=== PATIENT | male | born 1930 | race Caucasian/White ===

== ENCOUNTER 2016-11-23 09:15 | Emergency (ER) | payer OTHER ==
--- NOTE | 2016-11-23 09:57 | ED CLINICAL REPORT ---
Clinical Report - Physicians/Mid Levels [facility] [address] [place] [place] [address] 11/23/2016 9:17 Patient: DAISY WINKLER Time Seen: 09:48; initial patient contact. Arrived- By private vehicle. Historian- patient. HISTORY OF PRESENT ILLNESS Chief Complaint: Injury to the left foot. The injury happened yesterday. Occurred at home. (Gout). Patient is experiencing moderate pain. Patient denies injury to the head or neck. REVIEW OF SYSTEMS The patient has had swelling. No tingling or skin laceration. He has no pain on weight bearing. All systems otherwise negative, except as recorded above. PAST HISTORY Gout. Gastroesophageal Reflux Disease. Hypertension. SURGERIES: Dental Surgery. R Hand Tendon Repair. Medications: Lisinopril Oral. Multivitamins Oral. Omeprazole Oral. Allergies: Aspirin. SOCIAL HISTORY Former smoker. Alcohol use. Patient is a recovering alcoholic. ADDITIONAL NOTES The nursing notes have been reviewed with agreement regarding the chief complaint, PMH and patient medications and allergies. PHYSICAL EXAM Vital Signs: 11/23/2016 09:35 BP: 147/86. HR: 90. RR: 18. O2 saturation: 97%. Temp: 98.2 F. Pain level now: 1010. Have been reviewed. Hypertensive. Heart rate normal. Respiratory rate normal. Temperature normal. Oxygen saturation normal. Appearance: Alert. Oriented X3. No acute distress. Eyes: Eyes normal inspection. CVS: Normal heart rate and rhythm. Heart sounds normal. Respiratory: No respiratory distress. Breath sounds normal. Skin: Skin intact. Skin warm and dry. Extremities: Left great toe: mild erythema and swelling and moderate tenderness of the MTP joint; limited movement secondary to pain (diminished flexion and extension). Neurovascular intact distally. No deformity. No ankle injury. Foot and ankle exam otherwise negative. Extremities otherwise negative. Neuro, Vascular and Tendons: Vascular status intact. Sensation intact. Motor intact. Gait: Limping gait. Neuro: Oriented X 3. PROGRESS AND PROCEDURES Disposition: Discharged home in good condition. Condition: good. 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 No tophus. INSTRUCTIONS Apply ice for 20 minutes four times a day. Don't apply ice directly to skin. Your Current Medications: CONTINUE TAKING THE FOLLOWING MEDICATIONS: Lisinopril Oral. Multivitamins Oral. Omeprazole Oral. Prescription Medications: Ibuprofen 600 mg tablets: take 1 tablet orally every 6 hours as needed for pain, stiffness or swelling. Dispense thirty (30). No refill. Colchicine 0.6 mg tablets: take 1 tablet orally every 1-2 hours as needed for pain. Do not take more than 4 mg in one day. Dispense twenty (20). No refills. Follow-up: Blood pressure screening was not performed during this visit because the patient has an active diagnosis of hypertension. The patient should follow up with a primary care provider for blood pressure management. Follow-up with: Romie Acevedo MD, [facility], , [facility], [address] [place] [address] Follow up in about two days if not better. Call for an appointment. (Electronically signed by Rafat Concepcion Dr. 11/23/2016 10:00)
--- NOTE | 2016-11-23 09:57 | ED CLINICAL REPORT ---
Clinical Report - Physicians/Mid Levels [facility] [address] [place] [place] [address] 11/23/2016 9:17 Patient: DAISY WINKLER Time Seen: 09:48; initial patient contact. Arrived- By private vehicle. Historian- patient. HISTORY OF PRESENT ILLNESS Chief Complaint: Injury to the left foot. The injury happened yesterday. Occurred at home. (Gout). Patient is experiencing moderate pain. Patient denies injury to the head or neck. REVIEW OF SYSTEMS The patient has had swelling. No tingling or skin laceration. He has no pain on weight bearing. All systems otherwise negative, except as recorded above. PAST HISTORY Gout. Gastroesophageal Reflux Disease. Hypertension. SURGERIES: Dental Surgery. R Hand Tendon Repair. Medications: Lisinopril Oral. Multivitamins Oral. Omeprazole Oral. Allergies: Aspirin. SOCIAL HISTORY Former smoker. Alcohol use. Patient is a recovering alcoholic. ADDITIONAL NOTES The nursing notes have been reviewed with agreement regarding the chief complaint, PMH and patient medications and allergies. PHYSICAL EXAM Vital Signs: 11/23/2016 09:35 BP: 147/86. HR: 90. RR: 18. O2 saturation: 97%. Temp: 98.2 F. Pain level now: 1010. Have been reviewed. Hypertensive. Heart rate normal. Respiratory rate normal. Temperature normal. Oxygen saturation normal. Appearance: Alert. Oriented X3. No acute distress. Eyes: Eyes normal inspection. CVS: Normal heart rate and rhythm. Heart sounds normal. Respiratory: No respiratory distress. Breath sounds normal. Skin: Skin intact. Skin warm and dry. Extremities: Left great toe: mild erythema and swelling and moderate tenderness of the MTP joint; limited movement secondary to pain (diminished flexion and extension). Neurovascular intact distally. No deformity. No ankle injury. Foot and ankle exam otherwise negative. Extremities otherwise negative. Neuro, Vascular and Tendons: Vascular status intact. Sensation intact. Motor intact. Gait: Limping gait. Neuro: Oriented X 3. PROGRESS AND PROCEDURES Disposition: Discharged home in good condition. Condition: good. 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 No tophus. INSTRUCTIONS Apply ice for 20 minutes four times a day. Don't apply ice directly to skin. Your Current Medications: CONTINUE TAKING THE FOLLOWING MEDICATIONS: Lisinopril Oral. Multivitamins Oral. Omeprazole Oral. Prescription Medications: Ibuprofen 600 mg tablets: take 1 tablet orally every 6 hours as needed for pain, stiffness or swelling. Dispense thirty (30). No refill. Colchicine 0.6 mg tablets: take 1 tablet orally every 1-2 hours as needed for pain. Do not take more than 4 mg in one day. Dispense twenty (20). No refills. Follow-up: Blood pressure screening was not performed during this visit because the patient has an active diagnosis of hypertension. The patient should follow up with a primary care provider for blood pressure management. Follow-up with: Romie Acevedo MD, [facility], , [facility], [address] [place] [address] Follow up in about two days if not better. Call for an appointment. (Electronically signed by Rafat Concepcion Dr. 11/23/2016 10:00)
--- NOTE | 2016-11-23 09:57 | ED NURSING NOTES ---
Clinical Report - Nurses [facility] [address] [place] [address] 11/23/2016 9:17 Patient: DAISY WINKLER TRIAGE Triage time 09:36. Acuity: LEVEL 5. Chief Complaint: LEFT LOWER EXTREMITY PAIN and SWELLING. Location of symptoms- left foot and left great toe. --09:41 Venessa Miner R.N. 09:35 11/23/16. BP: 147/86. HR: 90. RR: 18. O2 saturation: 97%. Temp: 98.2 F. Pain level now: 07/24. --09:41 Venessa Miner R.N. Weight: 63.9 kg stated. Height/Length: 66 inches Per Patient. BMI: 22.7. --09:36 Venessa Miner R.N. Medications Lisinopril Oral. Multivitamins Oral. Omeprazole Oral. --09:38 Venessa Miner R.N. Allergies Aspirin. --09:38 Venessa Miner R.N. History Arrived by private vehicle. Historian: patient. Accompanied by friend. Primary physician ([place], at [facility]). No injury occurred. This occurred yesterday. SOCIAL HX: Former smoker, end date 1985. Alcohol use. Patient is a recovering alcoholic. No drug use. FALL RISK ASSESSMENT: Fall risk assessment completed. No fall risk identified. NUTRITIONAL RISK ASSESSMENT: The nutritional risk assessment revealed no deficiencies. FUNCTIONAL ASSESSMENT: Functional assessment performed: mobility impairment present- this mobility impairment is an ongoing problem. --09:41 Venessa Miner R.N. PROBLEMS: Gout. Gastroesophageal Reflux Disease. Hypertension. --09:39 Venessa Miner R.N. ADDITIONAL SURGERIES: Dental Surgery. R Hand Tendon Repair. --09:39 Venessa Miner R.N. Interventions ID band on patient. To room. --09:41 Venessa Miner R.N. PHYSICAL ASSESSMENT 09:41 11/23/16. GENERAL / NEURO / PSYCH: Appears in pain and anxious. --09:41 Venessa Miner R.N. NURSING PROGRESS NOTES 09:42 11/23/16. Patient identifiers checked. Call light placed in reach. Bed placed in lowest position. Patient ready for evaluation- chart flagged. --09:42 Vensesa Miner R.N. DISPOSITION / DISCHARGE Departure time: 10:03. Condition at departure: unchanged. Reviewed medication(s) information. Prescription(s) given to the patient. Reviewed referral to family practice for followup (since patient complained that he has to wait months to get into his PCP at [facility], pt was referred to a new PCP closeby, where the availability to make appts is better.). Verbalized understanding. Written instructions provided. The patient was discharged home. He left the Emergency Department in a wheelchair and via private vehicle. Car Restorer driving. --10:06 Venessa Miner R.N. Locked/Released at 11/23/2016 10:07 by Venessa Miner R.N.
--- NOTE | 2016-11-23 09:57 | ED NURSING NOTES ---
Clinical Report - Nurses [facility] [address] [place] [address] 11/23/2016 9:17 Patient: DAISY WINKLER TRIAGE Triage time 09:36. Acuity: LEVEL 5. Chief Complaint: LEFT LOWER EXTREMITY PAIN and SWELLING. Location of symptoms- left foot and left great toe. --09:41 Venessa Miner R.N. 09:35 11/23/16. BP: 147/86. HR: 90. RR: 18. O2 saturation: 97%. Temp: 98.2 F. Pain level now: 07/24. --09:41 Venessa Miner R.N. Weight: 63.9 kg stated. Height/Length: 66 inches Per Patient. BMI: 22.7. --09:36 Venessa Miner R.N. Medications Lisinopril Oral. Multivitamins Oral. Omeprazole Oral. --09:38 Venessa Miner R.N. Allergies Aspirin. --09:38 Venessa Miner R.N. History Arrived by private vehicle. Historian: patient. Accompanied by friend. Primary physician ([place], at [facility]). No injury occurred. This occurred yesterday. SOCIAL HX: Former smoker, end date 1985. Alcohol use. Patient is a recovering alcoholic. No drug use. FALL RISK ASSESSMENT: Fall risk assessment completed. No fall risk identified. NUTRITIONAL RISK ASSESSMENT: The nutritional risk assessment revealed no deficiencies. FUNCTIONAL ASSESSMENT: Functional assessment performed: mobility impairment present- this mobility impairment is an ongoing problem. --09:41 Venessa Miner R.N. PROBLEMS: Gout. Gastroesophageal Reflux Disease. Hypertension. --09:39 Venessa Miner R.N. ADDITIONAL SURGERIES: Dental Surgery. R Hand Tendon Repair. --09:39 Venessa Miner R.N. Interventions ID band on patient. To room. --09:41 Venessa Miner R.N. PHYSICAL ASSESSMENT 09:41 11/23/16. GENERAL / NEURO / PSYCH: Appears in pain and anxious. --09:41 Venessa Miner R.N. NURSING PROGRESS NOTES 09:42 11/23/16. Patient identifiers checked. Call light placed in reach. Bed placed in lowest position. Patient ready for evaluation- chart flagged. --09:42 Venessa Miner R.N. DISPOSITION / DISCHARGE Departure time: 10:03. Condition at departure: unchanged. Reviewed medication(s) information. Prescription(s) given to the patient. Reviewed referral to family practice for followup (since patient complained that he has to wait months to get into his PCP at [facility], pt was referred to a new PCP closeby, where the availability to make appts is better.). Verbalized understanding. Written instructions provided. The patient was discharged home. He left the Emergency Department in a wheelchair and via private vehicle. Diversified Crops Supervisor driving. --10:06 Venessa Miner R.N. Locked/Released at 11/23/2016 10:07 by Venessa Miner R.N.
--- NOTE | 2016-11-23 10:08 | ED MAR SUMMARY ---
..... Medication Administration Record [facility] [address] [id number] Patient: DAISY WINKLER Visit ID: [id number] 86y, M Weight: 63.9 kg Height/Length: 66 in BMI: 22.7 ALLERGIES: Aspirin
--- NOTE | 2016-11-23 10:08 | ED MED RECONCILIATION SUMMARY ---
Patient: DAISY WINKLER Medication Reconciliation Report [facility] VisitID: [id number] [address] [place] [address] 86y, M Registration Date/Time: 11/23/2016 Weight: 63.9 kg Height/Length: 66 in. BMI: 22.7 ALLERGIES: Aspirin The patient's Home Medications are listed below: CONTINUE TAKING THE FOLLOWING MEDICATIONS: Lisinopril Oral Multivitamins Oral Omeprazole Oral The source(s) of the original Home Medication information: Not obtained. The following Medications were given to the patient in the Emergency Department: None. The following Medications were prescribed to the patient: Ibuprofen 600 mg tablets: take 1 tablet orally every 6 hours as needed for pain, stiffness or swelling. Dispense thirty (30). No refill. -- Rafat Concepcion Dr. Colchicine 0.6 mg tablets: take 1 tablet orally every 1-2 hours as needed for pain. Do not take more than 4 mg in one day. Dispense twenty (20). No refills. -- Rafat Concepcion Dr.
--- NOTE | 2016-11-23 10:08 | ED DISCHARGE INSTRUCTIONS ---
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 No tophus. INSTRUCTIONS Apply ice for 20 minutes four times a day. Don't apply ice directly to skin. Your Current Medications: CONTINUE TAKING THE FOLLOWING MEDICATIONS: Lisinopril Oral. Multivitamins Oral. Omeprazole Oral. Prescription Medications: Ibuprofen 600 mg tablets: take 1 tablet orally every 6 hours as needed for pain, stiffness or swelling. Dispense thirty (30). No refill. Colchicine 0.6 mg tablets: take 1 tablet orally every 1-2 hours as needed for pain. Do not take more than 4 mg in one day. Dispense twenty (20). No refills. Follow-up: Blood pressure screening was not performed during this visit because the patient has an active diagnosis of hypertension. The patient should follow up with a primary care provider for blood pressure management. Follow-up with: [facility], [facility], , [facility], [address] [place] [address] Follow up in about two days if not better. Call for an appointment. ADDITIONAL INFORMATION Gout Gout or "gouty arthritis" is an inflammation of a joint due to a build-up of gout crystals in the joint fluid. This occurs when there is an excess uric acid (a normal waste product) in the body. Uric acid builds up in the body when the kidneys are unable to filter enough of it from the blood. This may occur with aging or kidney disease. Gout occurs more often in persons with obesity, diabetes, hypertension, high fats in the blood. It may be present in other family members. Alcohol and certain foods (such as shellfish and alcohol) may increase uric acid levels in the blood and cause a gout attack. Gout causes a hot, red, swollen and painful joint. If you have had one episode of gout, you are likely to have another. An acute attack of gout can be treated with anti-inflammatory and other medicine. If these attacks become frequent it may be necessary to take a daily medicine to help the kidney remove uric acid from the body. Home Care: Apply an ice pack (ice cubes in a plastic bag, wrapped in a towel) over the injured area for 20 minutes every 1-2 hours the first day for pain relief. Continue this 3-4 times a day until the pain and swelling goes away. Avoid alcohol and foods listed below (see Prevention) during a gout attack. Drink extra fluid to help flush the uric acid through your kidneys. Rest painful joints. If gout affects the joints of your foot or leg, you may want to use crutches for the first few days to keep from bearing weight on the foot or leg. Take anti-inflammatory medicine as directed. You may be prescribed Indocin (indomethacin), or zwlb-ndv-lsnoswj drugs such as ibuprofen (Motrin, Advil) or naproxen (Naprosyn or Aleve). Tylenol will not be as effective since it is not an anti-inflammatory drug. If narcotic pain medicines have been prescribed, they should be used in addition to the anti-inflammatory drugs and only for severe pain. Avoid aspirin since this may slow down the flushing of the uric acid through your kidneys. Preventing Future Attacks: Minimize or avoid alcohol use. Excess alcohol intake can cause a gout attack. Foods high in purine form uric acid in the body and increase your risk for a gout attack. Therefore, avoid the following foods: certain seafoods (anchovies, sardines, shrimp, scallops, vu, mackerel); wild game, meat extracts and meat gravies; organ foods (kidney, liver, calf brain, sweetbreads). Avoid drinks with fructose (a type of sugar). Limit the following foods to one serving a day: red meat and pork, fish, poultry, dried beans and peas, asparagus, mushrooms, cauliflower and spinach. If you are overweight, this is a risk factor and you should talk to your doctor about a weight reduction plan. However, avoid fasting or extreme low calorie diets (less than 900 jeannine/day) which will increase uric acid levels in the body. If you are diabetic or have high blood pressure, work with your doctor to achieve control of these conditions. Avoid injury to the involved joint since this can lead to a gout attack. Colchicine can be effective in stopping a gout attack. If you were given a prescription of this medicine for future use, begin it at the first sign of an attack. Colchicine may cause nausea, vomiting, diarrhea and other side effects. Follow Up with your doctor as advised or if you are not improving after three days of treatment. Get Prompt Medical Attention if any of the following occur: Fever over 100.4F (38.0C) with worsening joint pain Increasing redness around the joint Pain developing in another joint Repeated vomiting, abdominal pain, or blood in the vomit or stool (black or red color) Ibuprofen Oral tablet What is this medicine? IBUPROFEN (eye BYOO proe fen) is a non-steroidal anti-inflammatory drug (NSAID). It is used for dental pain, fever, headaches or migraines, osteoarthritis, rheumatoid arthritis, or painful monthly periods. It can also relieve minor aches and pains caused by a cold, flu, or sore throat. How should I use this medicine? Take this medicine by mouth with a glass of water. Follow the directions on the prescription label. Take this medicine with food if your stomach gets upset. Try to not lie down for at least 10 minutes after you take the medicine. Take your medicine at regular intervals. Do not take your medicine more often than directed. A special MedGuide will be given to you by the pharmacist with each prescription and refill. Be sure to read this information carefully each time. Talk to your mattress spring encaser regarding the use of this medicine in children. Special care may be needed. What side effects may I notice from receiving this medicine? Side effects that you should report to your doctor or health manager career as soon as possible: allergic reactions like skin rash, itching or hives, swelling of the face, lips, or tongue black or bloody stools, blood in the urine or in vomit breathing problems changes in vision chest pain general ill feeling or flu-like symptoms nausea or vomiting redness, blistering, peeling or loosening of the skin, including inside the mouth slurred speech or weakness on one side of the body stomach pain unexplained weight gain or swelling unusually weak or tired yellowing of eyes or skin Side effects that usually do not require medical attention (report to your doctor or health manager career if they continue or are bothersome): constipation or diarrhea dizziness gas or heartburn stomach upset What may interact with this medicine? Do not take this medicine with any of the following medications: cidofovir ketorolac methotrexate pemetrexed This medicine may also interact with the following medications: alcohol aspirin diuretics lithium other drugs for inflammation like prednisone warfarin What if I miss a dose? If you miss a dose, take it as soon as you can. If it is almost time for your next dose, take only that dose. Do not take double or extra doses. Where should I keep my medicine? Keep out of the reach of children. Store at room temperature between 15 and 30 degrees C (59 and 86 degrees F). Keep container tightly closed. Throw away any unused medicine after the expiration date. What should I tell my health care provider before I take this medicine? They need to know if you have any of these conditions: asthma cigarette smoker drink more than 3 alcohol containing drinks a day heart disease or circulation problems such as heart failure or leg edema (fluid retention) high blood pressure kidney disease liver disease stomach bleeding or ulcers an unusual or allergic reaction to ibuprofen, aspirin, other NSAIDS, other medicines, foods, dyes, or preservatives or trying to get breast-feeding What should I watch for while using this medicine? Tell your doctor or healthcare professional if your symptoms do not start to get better or if they get worse. This medicine does not prevent heart attack or stroke. In fact, this medicine may increase the chance of a heart attack or stroke. The chance may increase with longer use of this medicine and in people who have heart disease. If you take aspirin to prevent heart attack or stroke, talk with your doctor or health manager career. Do not take other medicines that contain aspirin, ibuprofen, or naproxen with this medicine. Side effects such as stomach upset, nausea, or ulcers may be more likely to occur. Many medicines available without a prescription should not be taken with this medicine. This medicine can cause ulcers and bleeding in the stomach and intestines at any time during treatment. Ulcers and bleeding can happen without warning symptoms and can cause . To reduce your risk, do not smoke cigarettes or drink alcohol while you are taking this medicine. You may get drowsy or dizzy. Do not drive, use machinery, or do anything that needs mental alertness until you know how this medicine affects you. Do not stand or sit up quickly, especially if you are an older patient. This reduces the risk of dizzy or fainting spells. This medicine can cause you to bleed more easily. Try to avoid damage to your teeth and gums when you brush or floss your teeth. You have been given the following additional information: Gouty Arthritis Ibuprofen Oral tablet (Electronically signed by Rafat Concepcion Dr. 11/23/2016 10:00)
--- NOTE | 2016-11-23 10:08 | ED MAR SUMMARY ---
..... Medication Administration Record [facility] [address] [place], [place] [id number] Patient: DAISY WINKLER Visit ID: [id number] 86y, M Weight: 63.9 kg Height/Length: 66 in BMI: 22.7 ALLERGIES: Aspirin
--- NOTE | 2016-11-23 10:08 | ED DISCHARGE INSTRUCTIONS ---
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 No tophus. INSTRUCTIONS Apply ice for 20 minutes four times a day. Don't apply ice directly to skin. Your Current Medications: CONTINUE TAKING THE FOLLOWING MEDICATIONS: Lisinopril Oral. Multivitamins Oral. Omeprazole Oral. Prescription Medications: Ibuprofen 600 mg tablets: take 1 tablet orally every 6 hours as needed for pain, stiffness or swelling. Dispense thirty (30). No refill. Colchicine 0.6 mg tablets: take 1 tablet orally every 1-2 hours as needed for pain. Do not take more than 4 mg in one day. Dispense twenty (20). No refills. Follow-up: Blood pressure screening was not performed during this visit because the patient has an active diagnosis of hypertension. The patient should follow up with a primary care provider for blood pressure management. Follow-up with: Romie Acevedo MD, [facility], , [facility], [address] [place] [address] Follow up in about two days if not better. Call for an appointment. ADDITIONAL INFORMATION Gout Gout or "gouty arthritis" is an inflammation of a joint due to a build-up of gout crystals in the joint fluid. This occurs when there is an excess uric acid (a normal waste product) in the body. Uric acid builds up in the body when the kidneys are unable to filter enough of it from the blood. This may occur with aging or kidney disease. Gout occurs more often in persons with obesity, diabetes, hypertension, high fats in the blood. It may be present in other family members. Alcohol and certain foods (such as shellfish and alcohol) may increase uric acid levels in the blood and cause a gout attack. Gout causes a hot, red, swollen and painful joint. If you have had one episode of gout, you are likely to have another. An acute attack of gout can be treated with anti-inflammatory and other medicine. If these attacks become frequent it may be necessary to take a daily medicine to help the kidney remove uric acid from the body. Home Care: Apply an ice pack (ice cubes in a plastic bag, wrapped in a towel) over the injured area for 20 minutes every 1-2 hours the first day for pain relief. Continue this 3-4 times a day until the pain and swelling goes away. Avoid alcohol and foods listed below (see Prevention) during a gout attack. Drink extra fluid to help flush the uric acid through your kidneys. Rest painful joints. If gout affects the joints of your foot or leg, you may want to use crutches for the first few days to keep from bearing weight on the foot or leg. Take anti-inflammatory medicine as directed. You may be prescribed Indocin (indomethacin), or deaw-fsn-pcbwdzj drugs such as ibuprofen (Motrin, Advil) or naproxen (Naprosyn or Aleve). Tylenol will not be as effective since it is not an anti-inflammatory drug. If narcotic pain medicines have been prescribed, they should be used in addition to the anti-inflammatory drugs and only for severe pain. Avoid aspirin since this may slow down the flushing of the uric acid through your kidneys. Preventing Future Attacks: Minimize or avoid alcohol use. Excess alcohol intake can cause a gout attack. Foods high in purine form uric acid in the body and increase your risk for a gout attack. Therefore, avoid the following foods: certain seafoods (anchovies, sardines, shrimp, scallops, vu, mackerel); wild game, meat extracts and meat gravies; organ foods (kidney, liver, calf brain, sweetbreads). Avoid drinks with fructose (a type of sugar). Limit the following foods to one serving a day: red meat and pork, fish, poultry, dried beans and peas, asparagus, mushrooms, cauliflower and spinach. If you are overweight, this is a risk factor and you should talk to your doctor about a weight reduction plan. However, avoid fasting or extreme low calorie diets (less than 900 jeannine/day) which will increase uric acid levels in the body. If you are diabetic or have high blood pressure, work with your doctor to achieve control of these conditions. Avoid injury to the involved joint since this can lead to a gout attack. Colchicine can be effective in stopping a gout attack. If you were given a prescription of this medicine for future use, begin it at the first sign of an attack. Colchicine may cause nausea, vomiting, diarrhea and other side effects. Follow Up with your doctor as advised or if you are not improving after three days of treatment. Get Prompt Medical Attention if any of the following occur: Fever over 100.4F (38.0C) with worsening joint pain Increasing redness around the joint Pain developing in another joint Repeated vomiting, abdominal pain, or blood in the vomit or stool (black or red color) Ibuprofen Oral tablet What is this medicine? IBUPROFEN (eye BYOO proe fen) is a non-steroidal anti-inflammatory drug (NSAID). It is used for dental pain, fever, headaches or migraines, osteoarthritis, rheumatoid arthritis, or painful monthly periods. It can also relieve minor aches and pains caused by a cold, flu, or sore throat. How should I use this medicine? Take this medicine by mouth with a glass of water. Follow the directions on the prescription label. Take this medicine with food if your stomach gets upset. Try to not lie down for at least 10 minutes after you take the medicine. Take your medicine at regular intervals. Do not take your medicine more often than directed. A special MedGuide will be given to you by the pharmacist with each prescription and refill. Be sure to read this information carefully each time. Talk to your architecture department chair regarding the use of this medicine in children. Special care may be needed. What side effects may I notice from receiving this medicine? Side effects that you should report to your doctor or health animal care giver as soon as possible: allergic reactions like skin rash, itching or hives, swelling of the face, lips, or tongue black or bloody stools, blood in the urine or in vomit breathing problems changes in vision chest pain general ill feeling or flu-like symptoms nausea or vomiting redness, blistering, peeling or loosening of the skin, including inside the mouth slurred speech or weakness on one side of the body stomach pain unexplained weight gain or swelling unusually weak or tired yellowing of eyes or skin Side effects that usually do not require medical attention (report to your doctor or health animal care giver if they continue or are bothersome): constipation or diarrhea dizziness gas or heartburn stomach upset What may interact with this medicine? Do not take this medicine with any of the following medications: cidofovir ketorolac methotrexate pemetrexed This medicine may also interact with the following medications: alcohol aspirin diuretics lithium other drugs for inflammation like prednisone warfarin What if I miss a dose? If you miss a dose, take it as soon as you can. If it is almost time for your next dose, take only that dose. Do not take double or extra doses. Where should I keep my medicine? Keep out of the reach of children. Store at room temperature between 15 and 30 degrees C (59 and 86 degrees F). Keep container tightly closed. Throw away any unused medicine after the expiration date. What should I tell my health care provider before I take this medicine? They need to know if you have any of these conditions: asthma cigarette smoker drink more than 3 alcohol containing drinks a day heart disease or circulation problems such as heart failure or leg edema (fluid retention) high blood pressure kidney disease liver disease stomach bleeding or ulcers an unusual or allergic reaction to ibuprofen, aspirin, other NSAIDS, other medicines, foods, dyes, or preservatives or trying to get breast-feeding What should I watch for while using this medicine? Tell your doctor or healthcare professional if your symptoms do not start to get better or if they get worse. This medicine does not prevent heart attack or stroke. In fact, this medicine may increase the chance of a heart attack or stroke. The chance may increase with longer use of this medicine and in people who have heart disease. If you take aspirin to prevent heart attack or stroke, talk with your doctor or health animal care giver. Do not take other medicines that contain aspirin, ibuprofen, or naproxen with this medicine. Side effects such as stomach upset, nausea, or ulcers may be more likely to occur. Many medicines available without a prescription should not be taken with this medicine. This medicine can cause ulcers and bleeding in the stomach and intestines at any time during treatment. Ulcers and bleeding can happen without warning symptoms and can cause . To reduce your risk, do not smoke cigarettes or drink alcohol while you are taking this medicine. You may get drowsy or dizzy. Do not drive, use machinery, or do anything that needs mental alertness until you know how this medicine affects you. Do not stand or sit up quickly, especially if you are an older patient. This reduces the risk of dizzy or fainting spells. This medicine can cause you to bleed more easily. Try to avoid damage to your teeth and gums when you brush or floss your teeth. You have been given the following additional information: Gouty Arthritis Ibuprofen Oral tablet (Electronically signed by Rafat Concepcion Dr. 11/23/2016 10:00)
--- NOTE | 2016-11-23 10:08 | ED MED RECONCILIATION SUMMARY ---
Patient: DAISY WINKLER Medication Reconciliation Report [facility] VisitID: [id number] [address] [place] [address] 86y, M Registration Date/Time: 11/23/2016 Weight: 63.9 kg Height/Length: 66 in. BMI: 22.7 ALLERGIES: Aspirin The patient's Home Medications are listed below: CONTINUE TAKING THE FOLLOWING MEDICATIONS: Lisinopril Oral Multivitamins Oral Omeprazole Oral The source(s) of the original Home Medication information: Not obtained. The following Medications were given to the patient in the Emergency Department: None. The following Medications were prescribed to the patient: Ibuprofen 600 mg tablets: take 1 tablet orally every 6 hours as needed for pain, stiffness or swelling. Dispense thirty (30). No refill. -- Rafat Concepcion Dr. Colchicine 0.6 mg tablets: take 1 tablet orally every 1-2 hours as needed for pain. Do not take more than 4 mg in one day. Dispense twenty (20). No refills. -- Rafat Concepcion Dr.
== END 2016-11-23 10:03 | disposition home or self-care (01) ==
LOC: ED SRH 09:15
DX: M10.072 Idiopathic gout, left ankle and foot (principal); I10 Essential (primary) hypertension; X58.XXXA Exposure to other specified factors, initial encounter; Y93.9 Activity, unspecified; Y92.009 Unspecified place in unspecified non-institutional (private) residence as the place of occurrence of the external cause; Y99.9 Unspecified external cause status; Z79.899 Other long term (current) drug therapy